=== PATIENT | female | born 1990 | race African-American/Black ===

== ENCOUNTER 2019-09-27 11:26 | Emergency (ER) | payer MEDICAID, OTHER ==
[~2019-09-27] VITALS: Ht 170.2 cm; Wt 80.0 kg
[2019-09-27 11:47] VITALS: BP 129/76
[2019-09-27] MEDS ORDERED: HYDROCODONE/ACETAMINOPHEN 5/325MG TABLET PO ONE (12:00)
[2019-09-27] MEDS ORDERED: ACETAMINOPHEN 500MG TABLET PO ONE (12:00)
== END 2019-09-27 14:14 | disposition home or self-care (01) ==
LOC: ER 13:22
DX: O99.89 Other specified diseases and conditions complicating pregnancy, childbirth and the puerperium (principal); G57.00 Lesion of sciatic nerve, unspecified lower limb; Z3A.16 16 weeks gestation of pregnancy
CPT/HCPCS: 99283

== ENCOUNTER 2022-08-13 18:53 | Emergency (ER) | payer MEDICAID ==
[~2022-08-13] VITALS: Ht 170.2 cm; Wt 73.0 kg
[2022-08-13 19:01] VITALS: BP 109/66
[2022-08-13] MEDS ORDERED: AMOXICILLIN 500 MG CAPSULE PO ONE (21:30)
[2022-08-13] MEDS ORDERED: AMOX-494 MT (21:31)
== END 2022-08-13 21:56 | disposition home or self-care (01) ==
LOC: ER 18:53
DX: J03.00 Acute streptococcal tonsillitis, unspecified (principal)
CPT/HCPCS: 99283

== ENCOUNTER 2023-11-14 19:55 | Emergency (ER) | payer MEDICAID ==
[~2023-11-14] VITALS: Ht 170.2 cm; Wt 73.0 kg
[~2023-11-14 19:55] MED LIST: AMOX-494 MT
[2023-11-14 20:36] VITALS: TEMP 99.9; O2SAT 99
[2023-11-14] MEDS ORDERED: ACET325T52 MT (21:11)
[2023-11-14] MEDS ORDERED: AMOX-494 MT (21:11)
[2023-11-14] MEDS: DEXAMETHASONE 4MG/ML 1ML VIAL IM ONE (21:15)
[2023-11-14] MEDS: KETOROLAC 30MG/ML VIAL IM ONE (21:15)
[2023-11-14 21:43] VITALS: BP 128/71; PULSE 76; RESP 18
== END 2023-11-14 21:45 | disposition home or self-care (01) ==
LOC: ER 19:55
DX: J03.90 Acute tonsillitis, unspecified (principal); Z98.890 Other specified postprocedural states; Z88.2 Allergy status to sulfonamides
CPT/HCPCS: 99284; 81025; 87430; 96372; J1100; J1885

== ENCOUNTER 2024-07-11 20:27 | Emergency (ER) | payer OTHER ==
[~2024-07-11] VITALS: Ht 170.2 cm; Wt 72.0 kg
[~2024-07-11 20:27] MED LIST changes: +ACET-3800 MT
[2024-07-11 20:36] VITALS: TEMP 98.6; O2SAT 100
[2024-07-11 20:40] VITALS: BP 128/94; PULSE 61; RESP 18; O2SAT 100
[2024-07-11] MEDS: KETOROLAC 15MG/ML VIAL IM ONE (23:30)
[2024-07-12] MEDS ORDERED: AMOX1TAB16 MT (00:33)
[2024-07-12] MEDS: KETOROLAC 15MG/ML VIAL IM NR (01:30)
== END 2024-07-12 01:45 | disposition home or self-care (01) ==
LOC: ER 20:27
DX: K04.7 Periapical abscess without sinus (principal); Z88.2 Allergy status to sulfonamides; Z79.899 Other long term (current) drug therapy
CPT/HCPCS: 99283; 81025; 96372; J1885